=== PATIENT | female | born 1950 | race Two or more races ===

== ENCOUNTER 2018-10-11 12:27 | Outpatient (CLI) | payer MEDICARE ==
[2018-10-11 13:51] LABS: ALANINE AMINOTRANSFERASE 23 U/L (12-78); ALBUMIN 3.9 g/dL (3.4-5.0); ANION GAP 6 mmol/L (5-15); CALCIUM 9.2 mg/dL (8.5-10.1); CHLORIDE 108 mmol/L (98-107)
[2018-10-11 13:53] LABS: ALKALINE PHOSPHATASE 78 U/L (45-117); BILIRUBIN,TOTAL 0.6 mg/dL (0.2-1.0); TOTAL PROTEIN 7.7 g/dL (6.4-8.2)
[2018-10-11] MEDS ORDERED: HYDR12.517 PO (14:13)
[2018-10-11] MEDS ORDERED: TRAM50TA2 PO (14:13)
[2018-10-11] MEDS ORDERED: DULO30CA2 PO (14:13)
[2018-10-11] MEDS ORDERED: IRBE75TA10 PO (14:13)
[2018-10-11] MEDS ORDERED: ZOLP10TA5 PO (14:13)
== END 2018-10-11 23:59 | disposition home or self-care (01) ==
LOC: STAR 12:27
PROVIDERS: ATTEND Orthopaedic Surgery
DX: Z01.818 Encounter for other preprocedural examination (principal); M75.101 Unspecified rotator cuff tear or rupture of right shoulder, not specified as traumatic; R94.31 Abnormal electrocardiogram [ECG] [EKG]
CPT/HCPCS: 36415; 80053; 93005

== ENCOUNTER 2018-10-18 05:17 | Day surgery (SDC) | payer MEDICARE ==
[~2018-10-18] VITALS: Ht 160 cm; Wt 63.5 kg
== END 2018-10-18 14:05 | disposition home or self-care (01) ==
LOC: OUT 05:17
PROVIDERS: ATTEND Orthopaedic Surgery
DX: S46.011A Strain of muscle(s) and tendon(s) of the rotator cuff of right shoulder, initial encounter (principal); S46.111A Strain of muscle, fascia and tendon of long head of biceps, right arm, initial encounter; S43.431A Superior glenoid labrum lesion of right shoulder, initial encounter; M75.41 Impingement syndrome of right shoulder; M65.811 Other synovitis and tenosynovitis, right shoulder; M75.51 Bursitis of right shoulder; M25.311 Other instability, right shoulder; I10 Essential (primary) hypertension; Z79.899 Other long term (current) drug therapy; Z87.891 Personal history of nicotine dependence; Z88.8 Allergy status to other drugs, medicaments and biological substances; Z82.61 Family history of arthritis; W19.XXXA Unspecified fall, initial encounter; Y93.89 Activity, other specified; Y92.89 Other specified places as the place of occurrence of the external cause; Y99.8 Other external cause status
CPT/HCPCS: 29823; 29826; 29827; 64415; C1713; J0171; J0690; J1100; J2250; J2370; J2405; J2704; J2710; J2795; J3010; J3490; J7120